=== PATIENT | male | born 1960 | race Caucasian/White ===

== ENCOUNTER 2017-03-11 17:05 | Emergency (ER) | payer OTHER ==
[2017-03-11 17:24] VITALS: BP 126/94
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
[2017-03-11] MEDS ORDERED: Sodium Chloride 0.9% 5 ML Syringe FLUSH PRN (18:37)
== END 2017-03-11 18:55 ==
LOC: KA.ED 17:05
DX: S79.921A Unspecified injury of right thigh, initial encounter (principal); F17.210 Nicotine dependence, cigarettes, uncomplicated; Z88.5 Allergy status to narcotic agent; W22.8XXA Striking against or struck by other objects, initial encounter
CPT/HCPCS: 73562-RT; 99284

== ENCOUNTER 2019-09-04 22:52 | Emergency (ER) | payer SELFPAY ==
[2019-09-04] MEDS ORDERED: Sodium Chloride 0.9% 1,000 ML IV ONE (23:26)
[2019-09-04] MEDS ORDERED: Acetaminophen 500 MG Tab PO ONE (23:26)
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
[2019-09-05 00:15] LABS: ANION GAP 19.3 mmol/L (5-15); CHLORIDE,CL 108 mmol/L (98-115); SODIUM,NA 146 mmol/L (136-145)
[2019-09-05 00:19] VITALS: PULSE 78
[2019-09-05] MEDS ORDERED: Ketorolac 30 MG/ML SDV IVPUSH ONE (00:31)
[2019-09-05 00:59] VITALS: BP 106/61
--- NOTE | 2019-09-05 08:25 | CT ---
[id number] CT/CT Head WO IV EXAM: CT Head WO IV CLINICAL DATA: SEVERE HEADACES,POSSIBLE SYNCOPE. COMPARISON STUDY: June 24, 2013. FINDINGS: Postsurgical changes following right-sided craniotomy with encephalomalacia involving the right frontal lobe. No intracranial hemorrhage, extra-axial fluid collection, mass, or acute ischemia. Ja cisterna magna. Generalized parenchymal atrophy with scattered areas of nonspecific white matter disease, commonly seen as sequela of chronic microvascular ischemia. Soft tissues are unremarkable. Paranasal sinuses and mastoid air cells are clear. IMPRESSION: No acute intracranial findings. Sav Vargas DO 09/05/19 0823 Thank you for allowing us to participate in the care of your patient.
== END 2019-09-05 00:55 | disposition home or self-care (01) ==
LOC: KA.ED 22:52
DX: R51 Headache (principal); F10.129 Alcohol abuse with intoxication, unspecified; Y90.6 Blood alcohol level of 120-199 mg/100 ml; F17.210 Nicotine dependence, cigarettes, uncomplicated; Z88.5 Allergy status to narcotic agent
CPT/HCPCS: 36415; 70450; 80048; 84484; 85025; 93005; 96361; 96374; 99284; 99284-25; A9270-GY; G0480; J1885; J7030